=== PATIENT | male | born 1955 | race Two or more races ===

== ENCOUNTER 2017-06-04 18:08 | Emergency (ER) | payer MEDICAID ==
[2017-06-04] VITALS (20 sets, daily range): BP systolic 136–165; BP diastolic 84–101
[~2017-06-04] VITALS: Ht 172.7 cm; Wt 81.6 kg
[~2017-06-04 18:08] MED LIST: ACETAMINOPHEN325 M1 ORAL; ACETAMINOPHEN650 M3 ORAL; AMLODIPINE BESY10 MG ORAL; ASPIR 8181 MG ORAL; CRANBERRY PO; DOCUSATE SODIU100 MG ORAL; KLONOPIN0.5 MG ORAL; MOM30 ML ORAL; MYLANTA30 M1 GT; NORCO 5-325 TA1 EACH ORAL; PAXIL30 MG ORAL; SAPHRIS5 MG SL; TOLTERODINE TART4 MG PO; ZOLPIDEM TARTRAT5 MG ORAL
[2017-06-04] MEDS ORDERED: Morphine Sulfate 4mg/ml Inj IM ONE (19:15)
[2017-06-04] MEDS ORDERED: Propofol 200mg/20ml IV ONE ×2 (20:45→21:30)
[2017-06-04] MEDS ORDERED: fentaNYL 100 mcg/2 mL IV ONE ×2 (22:00→23:23)
[2017-06-04] MEDS ORDERED: Norco 5mg/325mg tab ORAL PRN (22:00)
[2017-06-04] MEDS ORDERED: Mylanta II UD 30ml ORAL PRN (22:00)
[2017-06-04] MEDS ORDERED: Zolpidem 5mg tab ORAL PRN (22:00)
[2017-06-04] MEDS ORDERED: Midazolam 2mg/2ml Inj IVP ONE (22:00)
[2017-06-04] MEDS ORDERED: LORazepam Inj 2mg/ml 1ml IV PRN (22:00)
[2017-06-04] MEDS ORDERED: Morphine Sulfate 2mg/ml Inj IVP PRN (22:00)
[2017-06-04] MEDS ORDERED: Morphine Sulfate 4mg/ml Inj IVP PRN (22:00)
[2017-06-04] MEDS ORDERED: Miralax 17gm pkt ORAL PRN (22:00)
--- NOTE | 2017-06-04 23:38 | Emergency Room Report ---
History of Present Illness General Chief Complaint: Upper Extremity Injury Source: Patient (ANGELA TRUJILLO) Present Illness HPI The patient is a 61-year-old male presenting for continued right shoulder pain after fracture 4 days prior. He states that he had x-rays at another facility which showed fracture of the humerus. He states that he is unable to move the shoulder. He states that he has been using Tylenol which has not been helping. Pain is an 8/10 dull ache and does not radiate. Worse with touch. He denies any numbness or tingling. (ANGELA TRUJILLO) Allergies: Coded Allergies: No Known Allergies (Unverified , 05/08/14) Patient History Past Medical History: see triage record Pertinent Family History: none Reviewed Nursing Documentation: PMH: Agreed, PSxH: Agreed (ANGELA TRUJILLO) Nursing Documentation-PMH Hx Cardiac Problems: Yes - chronic pain Hx Hypertension: Yes - anemia Hx Cancer: No Hx Gastrointestinal Problems: Yes Hx Neurological Problems: No (ANGELA TRUJILLO) Review of Systems All Other Systems: negative except mentioned in HPI (ANGELA TRUJILLO) Physical Exam Vital Signs Date Time Temp Pulse Resp B/P (MAP) Pulse Ox O2 Delivery O2 Flow Rate FiO2 06/04/17 18:00 97.0 94 16 140/90 98 Room Air 06/04/17 20:50 2.0 Sp02 EP Interpretation: reviewed, normal General Appearance: no apparent distress, alert, GCS 15, non-toxic Head: normocephalic, atraumatic Eyes: bilateral eye normal inspection, bilateral eye PERRL ENT: hearing grossly normal, normal pharynx, no angioedema, normal voice Neck: full range of motion, supple/symm/no masses Respiratory: chest non-tender, lungs clear, normal breath sounds, speaking full sentences Musculoskeletal: decreased range of motion - R shoulder, swelling - R bicep and shoulder, tender - TTP over the R deltoid and proximal bicep Neurologic: alert, oriented x3, responsive, motor strength/tone normal, sensory intact, speech normal Psychiatric: judgement/insight normal, memory normal, mood/affect normal, no suicidal/homicidal ideation Skin: normal turgor, other - echymosis R bicep Lymphatic: no adenopathy (ANGELA TRUJILLO) General Appearance: alert, Chronically Ill ENT: other - poor dentition Cardiovascular #1: no gallop, edema Gastrointestinal: soft Musculoskeletal: other - deformity to right shoulder held slightly abducted Neurologic: normal inspection, alert, oriented x3, responsive Skin: other - bruising and edema to forearm and wrist (Delroy Powers) Procedures Procedural Sedation Total Time: 0015 (ANGELA TRUJILLO) Consent: Written Time out called at: 21:03 Pre-Sedation Assessment: Eval. Immed. Prior to Sed Airway Assessment (Malampati): III Heart: normal Lungs: normal Abdomen: abnormal - dislocation right shoulder Procedures/Plans: Closed Reduction Plan for Moderate Sedation: Propofol, Other - fentanyl, versed Procedure Narrative A consent was obtained for the procedure. The benefits of the procedure were explained to the patient. The patient agreed to the procedural sedation despite risks. The patient was given propofol in 10 mg increments until the patient was adequately sedated. The patient's procedure was performed without complications. Patient's O2 saturation remained at 96% throughout the entire procedure. Respiratory was at patient's bedside throughout the entire procedure. Patient was observed for approximately 30-45 minutes after the procedure was completed. Total length of the conscious sedation procedure was approximately 15 minutes. There were no complications associated with procedure.I was unable to reduce the patient shoulder. A repeat attempt was performed under sedation with Versed and fentanyl however I was still unable to reduce the shoulder despite multiple attempts. Time out was performed at 2315 and time was 2330 the patient was observed for 30 minutes after procedure without adverse effects. Start Time: 21:05 End Time: 21:20 Communication: No Apparent Limitation Mental Status: Awake Respiration: Unlabored Skin Condition: bruising to right upper extremity Abdomen: WNL Nausea: NO Vomiting: NO (Delroy Powers) Medical Decision Making PA Attestation Dr. Powers is my supervising physician. Patient management was discussed with my supervising physician (ANGELA TRUJILLO) Diagnostic Impression: Primary Impression: Closed fracture dislocation of right shoulder Additional Impression: Alcohol abuse ER Course Patient presented for shoulder pain. The patient was noted to have the prior history of humeral fracture . X-ray imaging of the right shoulder showed the dislocation with associated fracture. At times at reduction under sedation were unsuccessful. The patient be transferred to [facility] for definitive management. The post procedure x-rays showed continued dislocation. The patient continued to be able to move his arm. The because this dislocation been several days of this may have made reduction marked difficult.. The patient appears to be neurovascularly intact after attempts at reduction (Delroy Powers) Last Vital Signs Date Time Temp Pulse Resp B/P (MAP) Pulse Ox O2 Delivery O2 Flow Rate FiO2 06/04/17 22:35 98.0 77 20 146/87 96 Nasal Cannula 2.0 (ANGELA TRUJILLO) Status: unchanged (Delroy Powers) Disposition: [facility] Condition: Serious Referrals: ROSANA AKERS,REFERRING (PCP) ANGELA TRUJILLO Jun 04, 2017 23:38 Delroy Powers Jun 05, 2017 01:01
[2017-06-05] VITALS (7 sets, daily range): BP systolic 130–150; BP diastolic 56–96
[2017-06-05] MEDS ORDERED: Midazolam 2mg/2ml Inj IVP ONE
[2017-06-05 01:29] LABS: BASOPHILS % (AUTO) 0.7 % (0.0-2.0); EOSINOPHILS % (AUTO) 0.7 % (0.0-3.0); LYMPHOCYTES % (AUTO) 11.3 % (20.0-45.0); MEAN CORPUSCULAR HEMOGLOBIN 33.6 PG (27.0-31.0); MEAN CORPUSCULAR HGB CONC 34.6 G/DL (32.0-36.0); MEAN CORPUSCULAR VOLUME 97 FL (80-99); MEAN PLATELET VOLUME 6.8 FL (6.5-10.1); NEUTROPHILS % (AUTO) 80.3 % (45.0-75.0); PLATELET COUNT 196 K/UL (150-450); RED CELL DISTRIBUTION WIDTH 11.3 % (11.6-14.8); WHITE BLOOD COUNT 11.7 K/UL (4.8-10.8)
[2017-06-05 01:35] LABS: INR 1.1 (0.9-1.1)
[2017-06-05 01:52] LABS: ALANINE AMINOTRANSFERASE 18 U/L (3-41); ALBUMIN/GLOBULIN RATIO 1.3 (1.0-2.7); ANION GAP 17 (5-15); ASPARTATE AMINO TRANSFERASE 30 U/L (5-40); CALCIUM 9.1 mg/dL (8.6-10.2); CARBON DIOXIDE 21 mEQ/L (20-30); CHLORIDE 102 mEQ/L (98-107); CREATININE 0.7 mg/dL (0.7-1.2); GLOMERULAR FILTRATION RATE > 60 mL/min (>60); HEMOLYSIS 6; POTASSIUM 3.4 mEQ/L (3.4-4.9); SODIUM 140 mEQ/L (135-145); TOTAL PROTEIN 6.7 g/dL (6.6-8.7)
[2017-06-05 01:54] LABS: TROPONIN I < 0.30 ng/mL (<=0.30)
[2017-06-05] MEDS ORDERED: Morphine Sulfate 4mg/ml Inj IVP ONE (02:00)
[2017-06-05] MEDS ORDERED: Heparin 5000 units/ml inj SUBQ SCH (09:00)
[2017-06-05] MEDS ORDERED: Docusate 100mg cap ORAL SCH (09:00)
--- NOTE | 2017-06-05 11:54 | Diagnostic Imaging Report ---
Indication: PAIN Comparison: 05/04/2011 chest one view Findings: Single view of the chest shows a normal cardiomediastinal silhouette. Pulmonary vasculature is normal. Lung are clear. Soft tissues and osseous structures are within normal limits. Impression: Chest. No change from prior exam.
--- NOTE | 2017-06-05 11:55 | Diagnostic Imaging Report ---
Indication: Pain Comparison: None Findings: 3 views of the right elbow are obtained. There is no acute fracture or dislocation. Bony mineralization is normal. No bony destructive lesions are seen. No posterior fat pad or joint effusion is identified to indicate occult fracture. Degenerative changes as seen by some osteophytic formation best on lateral view. Impression: No acute fractures or dislocations of the right all. Degenerative changes.
--- NOTE | 2017-06-05 11:56 | Diagnostic Imaging Report ---
Indication: PAIN Comparison: None Findings: 3 views of the right wrist show no acute fractures or dislocations. Bony mineralization is normal. No bony destructive lesions are identified. Joint spaces are intact. There are no erosions. Soft tissue unremarkable. Impression: No acute fractures or dislocations of the right wrist.
--- NOTE | 2017-06-05 12:47 | Diagnostic Imaging Report ---
Indication: Pain Comparison: None Findings: 3 views of the right shoulder are obtained. There is anterior dislocation of the right shoulder. There is some bony density seen just lateral to the humeral head suspicious for some type of avulsion fracture. Coracoclavicular joint is intact. No bony destructive lesions are seen. Impression: Anterior dislocation of the right shoulder with suspected fracture.
--- NOTE | 2017-06-05 12:48 | Diagnostic Imaging Report ---
Indication: Status post reduction Comparison: Right shoulder x-ray 3 hours earlier. Findings: 3 views of the right shoulder shows no significant change from the prior examination. Anterior dislocation with suspected fracture still remains. Impression: No change from prior examination 3 hours earlier. Anterior dislocation with suspected fracture still remains.
--- NOTE | 2017-06-05 12:49 | Diagnostic Imaging Report ---
Indication: Status post reduction Comparison: 2 hours earlier Findings: 3 views of the right shoulder obtained. Again, there is no significant change from the prior examination. Anterior dislocation with suspected fracture still remains. Impression: No change from prior examination 2 hours earlier. Anterior dislocation with suspected fracture still remains. Degenerative changes at the coracoclavicular joint, unchanged.
[2017-06-05] MEDS ORDERED: clonazePAM 0.5mg tab ORAL SCH (21:00)
[2017-06-05] MEDS ORDERED: PARoxetine 10mg tab ORAL SCH (21:00)
== END 2017-06-05 02:57 | disposition short-term general hospital (02) ==
LOC: EDBD 18:08 → EMR 18:50
DX: S42.291A Other displaced fracture of upper end of right humerus, initial encounter for closed fracture (principal); S50.11XA Contusion of right forearm, initial encounter; S60.211A Contusion of right wrist, initial encounter; W19.XXXA Unspecified fall, initial encounter; Y92.89 Other specified places as the place of occurrence of the external cause; F10.10 Alcohol abuse, uncomplicated; G89.29 Other chronic pain; I10 Essential (primary) hypertension
CPT/HCPCS: 24505; 36415; 71010; 73030; 73080; 73110; 80053; 84484; 85025; 85610; 85730; 96361; 96372; 96374; 96375; 99285; J2250; J2270; J2704; J3010